=== PATIENT | female | born 1945 | race Caucasian/White ===

== ENCOUNTER 2023-06-19 08:41 | Outpatient (AMB) | payer MEDICARE, OTHER, SELFPAY ==
--- NOTE | 2023-06-19 08:47 | A.OFFVIS_ITS ---
Vital Signs 06/19/23 08:55 Height 5 ft 4 in BMI Reason not done Patient refused/unable BP 138/76 Blood Pressure Location Rt brachial Position Sitting Pulse 101 H Pulse Source Pulse Oximeter Pulse Oximetry (%) 96 Oxygen Delivery Method Room Air Comment 189lbs Intake Visit Reasons: elev CPR/Joint Pain Intake Note: New patient presents today for consult, referred by ENT for joint pain and elevated inflam marker. 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[employer] Required: No Accompanied by: Spouse Allergies sulfamethoxazole [From Bactrim] Allergy (Unknown, Verified 06/19/23 08:46) Unknown trimethoprim [From Bactrim] Allergy (Unknown, Verified 06/19/23 08:46) Unknown adhesive Adverse Reaction (Unknown, Verified 06/19/23 08:46) Unknown Medication List - Last Reconciled 06/19/23 by Kymberly Price MD coQ10 (ubiquinol) (Qunol Hugo CoQ10) 200 mg PO DAILY lisinopril 10 mg PO DAILY metformin ER 1,000 mg PO QID minoxidil mg PO niacinamide 500 mg PO DAILY semaglutide (Ozempic) mg subcut sumatriptan succinate 50 mg PO PRN thyroid (pork) (GROUP ACCOUNT DIRECTOR Thyroid) 90mg , 60mg orally; HPI Comments Details: This is a 77-year-old female who presents for evaluation of diffuse pain. She states that she was diagnosed with CV ID in 2012 and has been on IVIG q. 3 weeks since then. She states that she has had much less infection since she was started on IVIG. She states that in 2019 she developed acute onset of diffuse pain. 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 She was diagnosed with small fiber neuropathy based on a skin biopsy. She was treated with higher doses of IVIG. She states that for many years she has had diffuse pain especially on her elbows, knees, legs. Usually worse in the morning. She states that she gets intermittent pityriasis rashes. She has an itchy rash on her back that fluctuates in intensity. States that her brother has CVID. She denies any history of DVT/PE. She is unaware of any family history of an autoimmune rheumatic disease. She states that more than 10 years ago she was told that she has sleep apnea and a CPAP mask was prescribed but she was not able to tolerate it. She wakes up 2-3 times every night to urinate. She was evaluated by a urologist who suggested an estrogen cream. Patient has not used it. She walks 3 to 4 times a week, about 40 minutes. Brisk walking. She denies any swollen joints. [facility] Medical History (Updated 06/19/23 @ 09:50 by Kymberly Price MD) Small fiber neuropathy CVID (common variable immunodeficiency) Dermatitis Fatigue Migraines Disorder of autonomic nervous system Pain in joint, multiple sites Elevated C-reactive protein (CRP) Hypothyroidism Hypertension Surgical History (Updated 06/19/23 @ 08:43 by PATRICA Arguelles) No history of previous surgery Family History (Updated 06/19/23 @ 08:44 by PATRICA Arguelles) Other Family history of cancer Family history of heart disease Social History (Updated 06/19/23 @ 08:58 by PATRICA Arguelles) Alcohol intake: never Patient Tobacco Use Status: Never used Tobacco Female Reproductive History Menstrual Total pregnancies: 3 Full term: 2 Ab spontaneous: 1 Review of Systems Const Reports fatigue, Denies fever(s) and Denies weight loss Eyes Reports dry eyes and Reports itchy eyes ENT Reports dry mouth and Reports tinnitus GI Reports constipation and Reports nausea Musc Reports myalgias, Reports arthralgias, Denies joint swelling and Reports stiffness Skin/Breast Reports alopecia and Reports erythema Endo Reports fatigue Aller/Immun Reports itchy eyes Physical Exam Vital Signs: Last Vital Signs Pulse 101 H 06/19/23 08:55 BP 138/76 06/19/23 08:55 Pulse Ox 96 06/19/23 08:55 Oxygen Delivery Method Room Air 06/19/23 08:55 Const General: cooperative, healthy appearing and comfortable Nutritional Appearance: obese Orientation/consciousness: patient oriented x3 Limitations: no limitations HEENT Head: Yes normocephalic and Yes atraumatic Mouth: moist mucous membranes Resp Effort & Inspection: normal respiratory effort and able to speak in complete sentences Auscultation: clear to auscultation bilaterally Cardio Rate: regular rate Rhythm: regular rhythm GI Palpation (GI): Soft to palpation and nontender Neuro Other: No paresthesias could be found on exam Intact position sense of her toes General: patient oriented x3 Extrem Other: No active synovitis Multiple fibromyalgia tender points Normal nailfold capillaroscopy Assessment & Plan Assessment & Plan (1) Pain in joint, multiple sites: Code(s): M25.50 - Pain in unspecified joint Category: Medical Plan: This is a 77-year-old female with CVID on IVIG who presents for evaluation of diffuse pain. She also has biopsy-proven small fiber neuropathy. On exam I do not see any signs suggestive of an autoimmune rheumatic disease. Discussed with patient's symptoms and signs that are suggestive of an autoimmune rheumatic disease. Such as swollen joints. Prolonged morning stiffness and others. She can come back for re-evaluation. With regards to her pain. I believe there is a component of fibromyalgia in addition to her known small fiber neuropathy Discussed management of fibromyalgia with patient. Is a noninflammatory, non- autoimmune central afferent processing disorder leading to a diffuse pain syndrome. I suggested evaluation by a therapist to evaluate for any underlying anxiety/depression. Consider a repeat sleep study to rule out obstructive sleep apnea. Patient walks regularly 3 to 4 times a week. Patient would benefit from increased physical activity Consider low-impact exercises such as walking, swimming, aqua therapy stretching, yoga. Some medications such as duloxetine can be tried for fibromyalgia. Discussed wi th PCP. Follow-up as needed Plan I spent 62 minutes reviewing patient's chart, evaluating patient, counseling patient & and documenting in the chart Coding Level of Care Code New Pt Level 5 (28463) Diagnoses Pain in joint, multiple sites M25.50
[2023-06-19 08:55] VITALS: BP 138/76; PULSE 101; O2SAT 96
== END 2023-06-19 09:46 | disposition home or self-care (01) ==
LOC: HO.RHE 08:41
PROVIDERS: PCP Allergy & Immunology; Visit Provider Student in an Organized Health Care Education/Training Program
DX: M25.50 Pain in unspecified joint (principal)
CPT/HCPCS: 99205

== ENCOUNTER → 2023-06-19 08:41 | Outpatient (BNVA) | payer MEDICARE, OTHER, SELFPAY | PROVIDERS: PCP Allergy & Immunology; Visit Provider Student in an Organized Health Care Education/Training Program | DX: M25.50 Pain in unspecified joint (principal); G62.9 Polyneuropathy, unspecified | CPT/HCPCS: 99202 ==

== ENCOUNTER → 2023-07-19 14:34 | Outpatient (BNV) | payer MEDICARE, OTHER, SELFPAY | PROVIDERS: PCP Family Medicine; Referring Provider Allergy & Immunology; Visit Provider Internal Medicine Medical Oncology | DX: D72.819 Decreased white blood cell count, unspecified (principal) | CPT/HCPCS: 99204; 99213 ==

== ENCOUNTER 2023-10-03 13:34 | Outpatient (REF) | payer MEDICARE, OTHER, SELFPAY ==
--- NOTE | ~2023-10-03 | CT_ITS ---
EXAMINATION: CT CHEST WITH IV CONTRAST CT ABDOMEN AND PELVIS WITH IV CONTRAST CLINICAL INFORMATION: History of ovarian carcinoma. Initial staging. COMPARISON: None TECHNIQUE: Multidetector CT imaging examination of the chest, abdomen and pelvis was performed with intravenous administration of 85 mL Omnipaque 350. Axial images are displayed at 0.6 mm and 5 mm slice thickness. Oral contrast was given. Coronal and sagittal reformatted images were generated at the technologist's workstation and submitted for review. This CT examination was performed using dose optimization techniques as appropriate, variously including the following: *Automated exposure control *Adjustment of mA and/or kV according to patient size (this includes techniques or standardized protocols for targeted exams where dose is matched to indication/reason for exam; i.e. extremities or head) *Use of iterative reconstruction technique DLP: 662 mGy-cm FINDINGS: CHEST - LUNGS AND PLEURA: Trachea and central airways are widely patent and normal in caliber. Lungs are well expanded. Findings include a few small calcified granulomas in the lower lobes. No suspicious lung nodule, mass or pleural effusion. No interstitial disease. No evidence of metastatic disease within the chest. CARDIOVASCULAR: The heart size is normal. No pericardial effusion. Pulmonary arteries and thoracic aorta are normal in caliber. MEDIASTINUM/LOWER NECK: No mediastinal mass. Thyroid gland is atrophied. The esophagus is unremarkable. LYMPHATICS: No pathologic sized axillary, hilar or mediastinal lymph nodes. BONES AND THORACIC SOFT TISSUES: Mild spondylosis of the thoracic spine. No aggressive osseous lesions within the thorax. ABDOMEN AND PELVIS - HEPATOBILIARY: The patient has a relatively large body habitus and there is mild hepatomegaly. No focal liver lesion. Gallbladder is underdistended. No dilated bile ducts. PANCREAS: No edema, mass or pancreatic ductal dilatation. SPLEEN: A mass at the superior aspect of the spleen is nearly isodense to the spleen and measures up to 9.8 cm maximum dimension. Inferior splenule is noted. ADRENAL GLANDS: Normal. KIDNEYS AND URETERS: Kidneys are normal in size and enhance symmetrically. No nephrolithiasis or hydronephrosis. 4.5 cm simple cyst of the lower pole of the right kidney. No renal imaging follow-up is recommended for a simple cyst. The ureters are unremarkable. BOWEL AND PERITONEUM: No dilated bowel loops. Trace volume of abdominal ascites is present. There are diverticula of the sigmoid colon without evidence of diverticulitis. The appendix is normal. There is extensive nodularity from carcinomatosis affecting the omentum. ABDOMINAL WALL: Probable prior placement of mesh in the periumbilical region of the anterior abdominal wall. Intramuscular lipoma between the external and internal oblique muscles of the right lateral abdominal wall. VESSELS: Mild atherosclerosis of the abdominal aorta without aneurysm. Inferior vena cava is normal. LYMPH NODES: No pathologic sized lymph nodes in the abdomen or pelvis. No inguinal lymphadenopathy. BLADDER: Normal. PELVIC VISCERA: There are a few leiomyomas of the uterus. The right ovary is larger than the left ovary. The right ovary measures approximately 2.5 x 2.7 x 2.5 cm and has some anterior calcification. MUSCULOSKELETAL: No acute abnormalities within the degenerated lumbar spine. Findings include mild degenerative retrolisthesis at L1-L2 and L2-L3, and severe facet arthropathy and grade 1 [address]isthesis at L5-S1. CT/CT abdomen pelvis w IV con IMPRESSION: * In this patient with history of ovarian carcinoma, the right ovary is larger than the left ovary. * Omental nodularity/carcinomatosis is present, and there is a small volume of abdominal ascites. * Leiomyomas of the uterus. * No evidence of metastatic disease within the chest. 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 If deemed clinically warranted, this could be further characterized on an abdomen MRI performed without and with intravenous contrast.
[2023-10-03] MEDS: iohexoL 350 MG/ML 75 ML INFUS..BTL 85 ML IV (14:46)
== END 2023-10-03 13:35 | disposition home or self-care (01) ==
LOC: HO.CT 13:34
PROVIDERS: PCP Family Medicine; Visit Provider Internal Medicine Medical Oncology
DX: C78.6 Secondary malignant neoplasm of retroperitoneum and peritoneum (principal)
CPT/HCPCS: 71260; 74177; Q9967